=== PATIENT | female | born 1995 | race Caucasian/White ===

== ENCOUNTER 2016-12-02 17:25 | Outpatient (CLI) | payer BC, MEDICAID ==
[~2016-12-02 17:25] MED LIST: BUDE180A INH; IBUP200T48 PO; OXYC-302 PO
[2016-12-02 17:44] VITALS: BP 134/90
[2016-12-02 18:06] LABS: DAU SCREEN DISCLAIMER
== END 2016-12-02 20:28 | disposition home or self-care (01) ==
LOC: LDOP 17:25
PROVIDERS: ATTEND Specialist
DX: O26.893 Other specified pregnancy related conditions, third trimester (principal); O62.9 Abnormality of forces of labor, unspecified; O99.513 Diseases of the respiratory system complicating pregnancy, third trimester; J45.909 Unspecified asthma, uncomplicated; R10.32 Left lower quadrant pain; Z3A.31 31 weeks gestation of pregnancy
CPT/HCPCS: 59025; 76815; 80307; 81001; 87086; 99211; G0463

== ENCOUNTER 2017-01-13 08:50 | Emergency (ER) | payer BC ==
[~2017-01-13] VITALS: Ht 162.6 cm; Wt 65.4 kg
[2017-01-13] MEDS ORDERED: SODIUM CHLORIDE 0.9% 1,000 ML IV ONE (09:12)
[2017-01-13] MEDS ORDERED: SODIUM CHLORIDE 0.9% 1,000ML IVBOLUS ONE (09:30)
[2017-01-13] MEDS ORDERED: SODIUM CHLORIDE FLUSH 10ML SYR IVF ONE (09:30)
[2017-01-13] MEDS ORDERED: ONDANSETRON 2MG/ML, 2ML IVPush ONE (09:30)
[2017-01-13] MEDS ORDERED: ONDANSETRON 2MG/ML, 2ML ONE (09:42)
[2017-01-13 09:45] LABS: HEMATOCRIT 38.9 % (34.6-47.8); WHITE BLOOD COUNT 9.3 x10^3/uL (3.4-10)
[2017-01-13 09:58] LABS: BLOOD UREA NITROGEN 6 mg/dL (7-18)
[2017-01-13 10:02] LABS: ASPARTATE AMINO TRANSFERASE 8 U/L (15-37)
[2017-01-13 11:22] VITALS: BP 106/68
== END 2017-01-13 12:16 | disposition home or self-care (01) ==
LOC: ED 09:53
DX: O23.13 Infections of bladder in pregnancy, third trimester (principal); O99.613 Diseases of the digestive system complicating pregnancy, third trimester; Z3A.36 36 weeks gestation of pregnancy; K52.9 Noninfective gastroenteritis and colitis, unspecified; K92.9 Disease of digestive system, unspecified; J45.909 Unspecified asthma, uncomplicated; F12.10 Cannabis abuse, uncomplicated
CPT/HCPCS: 36415; 80053; 81001; 85025; 87086; 96361; 96374; 99284; J2405; J7030

== ENCOUNTER 2017-01-13 12:20 | Outpatient (CLI) | payer BC, MEDICAID ==
[~2017-01-13] VITALS: Ht 162.6 cm; Wt 64.5 kg
[2017-01-13 12:24] VITALS: BP 112/64
== END 2017-01-13 13:22 | disposition home or self-care (01) ==
LOC: LDOP 12:20
PROVIDERS: ATTEND Student in an Organized Health Care Education/Training Program
DX: O26.893 Other specified pregnancy related conditions, third trimester (principal); O99.513 Diseases of the respiratory system complicating pregnancy, third trimester; O99.323 Drug use complicating pregnancy, third trimester; R10.9 Unspecified abdominal pain; J45.909 Unspecified asthma, uncomplicated; F12.90 Cannabis use, unspecified, uncomplicated; Z3A.36 36 weeks gestation of pregnancy
CPT/HCPCS: 59025; 87081; 99211; G0463

== ENCOUNTER 2017-01-30 20:28 | Outpatient (CLI) | payer BC, MEDICAID ==
[~2017-01-30] VITALS: Ht 162.6 cm; Wt 66.4 kg
[2017-01-30 20:34] VITALS: BP 129/85
[2017-01-30] MEDS ORDERED: FLU VACC QS2017-18 (36MOS+) UP/PF 0.5 ML IM-VACC ONE (21:00)
[2017-01-30 22:20] LABS: DAU SCREEN DISCLAIMER
== END 2017-01-30 23:00 | disposition home or self-care (01) ==
LOC: LDOP 20:28
PROVIDERS: ATTEND Obstetrics & Gynecology
DX: O26.893 Other specified pregnancy related conditions, third trimester (principal); O99.513 Diseases of the respiratory system complicating pregnancy, third trimester; R10.9 Unspecified abdominal pain; J45.909 Unspecified asthma, uncomplicated; Z3A.38 38 weeks gestation of pregnancy
CPT/HCPCS: 59025; 80307; 90686; 99211; G0463; G0479

== ENCOUNTER 2018-11-11 21:06 | Emergency (ER) | payer BC, MEDICAID ==
[~2018-11-11] VITALS: Ht 162.6 cm; Wt 62.2 kg
[~2018-11-11 21:06] MED LIST changes: -IBUP200T48 PO; +IBUP200T49 PO
[2018-11-11] MEDS ORDERED: ONDANSETRON ODT 4 MG ONE (21:26)
[2018-11-11] MEDS ORDERED: KETOROLAC 30 MG/1 ML IVPush ONE (21:30)
[2018-11-11] MEDS ORDERED: ONDANSETRON ODT 8 MG PO ONE (21:30)
[2018-11-11] MEDS ORDERED: MORPHINE SULFATE 4 MG/ML, 1ML IVPush PRN (21:30)
[2018-11-11] MEDS ORDERED: KETOROLAC 30 MG/1 ML ONE (21:39)
[2018-11-11] MEDS ORDERED: MORPHINE SULFATE 4 MG/ML, 1ML ONE (21:39)
[2018-11-11 21:45] LABS: HCG UR SG 1.017 (1.003-1.030); MICROSCOPIC NOT IND
[2018-11-11 21:47] LABS: BASOPHILS # (AUTO) 0.02 x10^3/uL (0-0.1); BASOPHILS % (AUTO) 0 % (0-1); EOSINOPHILS # (AUTO) 0.11 x10^3/uL (0-0.4); EOSINOPHILS % (AUTO) 1 % (1-7); LYMPHOCYTES # (AUTO) 3.21 x10^3/uL (1-3.4); LYMPHOCYTES % (AUTO) 36 % (22-44); MD NO; MEAN CORPUSCULAR HEMOGLOBIN 31.2 pg (27.0-34.8); MEAN CORPUSCULAR HGB CONC 33.3 g/dL (32.4-35.8); MEAN CORPUSCULAR VOLUME 93.8 fL (80-100); MEAN PLATELET VOLUME 9.4 fL (7.4-10.4); MONOCYTES # (AUTO) 0.47 x10^3/uL (0.2-0.8); MONOCYTES % (AUTO) 5 % (2-9); NEUTROPHILS # (AUTO) 5.05 x10^3/uL (1.8-6.8); NEUTROPHILS % (AUTO) 57 % (42-75); PLATELET COUNT 262 x10^3/uL (130-400); RED BLOOD COUNT 4.29 x10^6/uL (3.82-5.3); RED CELL DISTRIBUTION WIDTH 13.1 % (9.6-15.2)
[2018-11-11 21:47] LABS: CULTURE INDICATED? NO
[2018-11-11 21:56] LABS: ALANINE AMINOTRANSFERASE 23 U/L (12-78); ALBUMIN 4.3 g/dL (3.4-5.0); ANION GAP 7 mmol/L (5-15); CHLORIDE 107 mmol/L (98-107); CREATININE 0.75 mg/dL (0.55-1.02)
[2018-11-11 21:58] LABS: ALKALINE PHOSPHATASE 72 U/L (45-117); BILIRUBIN,TOTAL 0.2 mg/dL (0.2-1.0)
--- NOTE | 2018-11-11 22:13 | NUR ---
Pt to ct.
--- NOTE | 2018-11-11 22:20 | NUR ---
BACK FROM CT.
--- NOTE | 2018-11-11 22:28 | NUR ---
THE PT REPORTS THE NAUSE HAD IMPROVED. WARM BLANKETS GIVEN TO THE PT.
--- NOTE | 2018-11-11 23:05 | NUR ---
at bedside for recheck.
[2018-11-11 23:33] VITALS: BP 115/67
== END 2018-11-11 23:38 | disposition home or self-care (01) ==
LOC: ED 21:19
DX: R10.12 Left upper quadrant pain (principal); R10.32 Left lower quadrant pain; J45.909 Unspecified asthma, uncomplicated; F41.1 Generalized anxiety disorder; F17.200 Nicotine dependence, unspecified, uncomplicated
CPT/HCPCS: 36415; 74176; 80053; 81003; 81025; 83690; 85025; 96374; 96375; 99284; J1885; J2270; Q0162

== ENCOUNTER 2019-02-17 10:25 | Emergency (ER) | payer MEDICAID ==
[~2019-02-17] VITALS: Ht 160 cm; Wt 63.0 kg
[2019-02-17 10:49] VITALS: BP 147/78
--- NOTE | 2019-02-17 11:23 | NUR ---
AMBULATORY TO ROOM FROM LOBBY
[2019-02-17] MEDS ORDERED: HYDROcodone/APAP 5/325 TABLET ONE (11:39)
--- NOTE | 2019-02-17 11:49 | NUR ---
Patient/Caregiver given discharge instructions and they have confirmed that they understand the instructions. Patient ambulatory with steady gait.
[2019-02-17] MEDS ORDERED: HYDROcodone/APAP 5/325 TABLET PO ONE (12:00)
== END 2019-02-17 11:55 | disposition home or self-care (01) ==
LOC: ED 11:47
DX: K02.9 Dental caries, unspecified (principal); J45.909 Unspecified asthma, uncomplicated; F19.10 Other psychoactive substance abuse, uncomplicated
CPT/HCPCS: 99283

== ENCOUNTER 2019-03-18 06:21 | Emergency (ER) | payer MEDICAID ==
[~2019-03-18] VITALS: Ht 160 cm; Wt 63.9 kg
--- NOTE | 2019-03-18 06:47 | NUR ---
DIRECTOR OF INTERCOLLEGIATE ATHLETICS: PT TO ROOM FROM [facility]
--- NOTE | 2019-03-18 06:59 | NUR ---
PT WITH C/O LLQ ABD PAIN, STATES PAIN HAS BEEN GOING ON FOR 2 WEEKS NOW, DESCRIBED SHARP. PT IS 4 WKS PER HER REPORT. PT ALSO HAS HAD SOME RECENT N/V/D. PT STATES VOMITTING 2-3 DAYS PER DAY, FOR THE LAST WK. ERPROVIDER IN TO SEE PT. AWAITING ORDERS.
[2019-03-18 07:10] VITALS: BP 109/80
[2019-03-18] MEDS ORDERED: ACETAMINOPHEN 500 MG TABLET PO ONE (07:30)
--- NOTE | 2019-03-18 07:36 | NUR ---
PT BACK FROM US.
[2019-03-18 07:46] LABS: MICROSCOPIC AUTO
[2019-03-18 07:47] LABS: CULTURE INDICATED? YES
== END 2019-03-18 09:06 | disposition home or self-care (01) ==
LOC: ED 07:45
DX: Z32.01 Encounter for pregnancy test, result positive (principal); R10.32 Left lower quadrant pain
CPT/HCPCS: 36415; 76801; 81001; 84702; 87086; 99284

== ENCOUNTER 2019-03-20 12:52 | Emergency (ER) | payer MEDICAID ==
[~2019-03-20] VITALS: Ht 160 cm; Wt 64.1 kg
--- NOTE | 2019-03-20 13:19 | NUR ---
BREAK RN: PATIENT AMBULATED TO THE BATHROOM WITH A STEADY GAIT.
--- NOTE | 2019-03-20 13:24 | NUR ---
URINE COLLECTED. LAB IN ROOM.
--- NOTE | 2019-03-20 13:26 | NUR ---
PATIENT TO US.
[2019-03-20 13:40] LABS: MICROSCOPIC NOT IND
[2019-03-20 13:46] LABS: CULTURE INDICATED? NO
[2019-03-20 14:11] VITALS: BP 123/66
--- NOTE | 2019-03-20 14:11 | NUR ---
ULTRASOUND COMPLETED. PT NOW CRAMPING. AWAITING DISPO
== END 2019-03-20 15:30 | disposition home or self-care (01) ==
LOC: ED 13:10
DX: O20.0 Threatened abortion (principal); O99.511 Diseases of the respiratory system complicating pregnancy, first trimester; J45.909 Unspecified asthma, uncomplicated
CPT/HCPCS: 36415; 76801; 81003; 84702; 99284

== ENCOUNTER 2019-03-24 10:00 | Emergency (ER) | payer MEDICAID ==
[~2019-03-24] VITALS: Ht 160 cm; Wt 60.0 kg
[2019-03-24 10:15] VITALS: BP 119/74
--- NOTE | 2019-03-24 10:42 | NUR ---
Patient/Caregiver given discharge instructions and they have confirmed that they understand the instructions. Patient ambulatory with steady gait.
[2019-03-24] MEDS ORDERED: BUPIVACAINE/PF-EPI 0.25% 1:200K SQ ONE (11:00)
== END 2019-03-24 10:47 | disposition home or self-care (01) ==
LOC: ED 10:20
DX: K08.89 Other specified disorders of teeth and supporting structures (principal); J45.909 Unspecified asthma, uncomplicated
CPT/HCPCS: 99283

== ENCOUNTER 2019-05-19 17:54 | Emergency (ER) | payer MEDICAID ==
[~2019-05-19] VITALS: Ht 160 cm; Wt 65.5 kg
[2019-05-19] MEDS ORDERED: SODIUM CHLORIDE 0.9% 1,000ML IVBOLUS ONE (18:30)
[2019-05-19] MEDS ORDERED: SODIUM CHLORIDE FLUSH 10ML SYR IVF ONE (18:30)
[2019-05-19] MEDS ORDERED: ONDANSETRON 2MG/ML, 2ML IVPush ONE (18:30)
[2019-05-19 19:03] LABS: BASOPHILS # (AUTO) 0.02 x10^3/uL (0-0.1); BASOPHILS % (AUTO) 0 % (0-1); EOSINOPHILS # (AUTO) 0.04 x10^3/uL (0-0.4); EOSINOPHILS % (AUTO) 0 % (1-7); LYMPHOCYTES # (AUTO) 2.44 x10^3/uL (1-3.4); LYMPHOCYTES % (AUTO) 22 % (22-44); MD NO; MEAN CORPUSCULAR HEMOGLOBIN 30.2 pg (27.0-34.8); MEAN CORPUSCULAR HGB CONC 33.3 g/dL (32.4-35.8); MEAN CORPUSCULAR VOLUME 90.6 fL (80-100); MEAN PLATELET VOLUME 9.9 fL (7.4-10.4); MONOCYTES # (AUTO) 0.44 x10^3/uL (0.2-0.8); MONOCYTES % (AUTO) 4 % (2-9); NEUTROPHILS # (AUTO) 8.18 x10^3/uL (1.8-6.8); NEUTROPHILS % (AUTO) 74 % (42-75); PLATELET COUNT 265 x10^3/uL (130-400); RED BLOOD COUNT 4.71 x10^6/uL (3.82-5.3); RED CELL DISTRIBUTION WIDTH 13.3 % (9.6-15.2)
[2019-05-19 19:09] LABS: ALANINE AMINOTRANSFERASE 13 U/L (12-78); ALBUMIN 3.5 g/dL (3.4-5.0); ANION GAP 7 mmol/L (5-15); CALCIUM 8.8 mg/dL (8.5-10.1); CHLORIDE 104 mmol/L (98-107); CREATININE 0.63 mg/dL (0.55-1.02)
[2019-05-19 19:11] LABS: ALKALINE PHOSPHATASE 55 U/L (45-117); BILIRUBIN,TOTAL 0.2 mg/dL (0.2-1.0); TOTAL PROTEIN 7.7 g/dL (6.4-8.2)
[2019-05-19 19:13] LABS: MICROSCOPIC NOT IND
[2019-05-19 19:15] LABS: CULTURE INDICATED? NO
--- NOTE | 2019-05-19 20:29 | NUR ---
PT TO ROOM FROM LOBBY
[2019-05-19] MEDS ORDERED: PROMETHAZINE 25 MG/ML, 1ML IM ONE (21:30)
--- NOTE | 2019-05-19 21:36 | NUR ---
PER DR. MIGUEL, HOLD IV AND FLUIDS, ONLY ADMINISTER IM PHENERGAN
[2019-05-19] MEDS ORDERED: PROMETHAZINE 25 MG/ML, 1ML ONE (21:37)
--- NOTE | 2019-05-19 21:44 | NUR ---
PT MEDICATED PER EMAR. 5 RIGHTS ADDRESSED. AWAITING DC PAPERWORK AT THIS TIME.
[2019-05-19 21:45] VITALS: BP 104/68
--- NOTE | 2019-05-19 22:49 | NUR ---
Patient/Caregiver given discharge instructions and they have confirmed that they understand the instructions. Patient ambulatory with steady gait.
== END 2019-05-19 22:51 | disposition home or self-care (01) ==
LOC: ED 21:46
DX: O21.0 Mild hyperemesis gravidarum (principal); O99.512 Diseases of the respiratory system complicating pregnancy, second trimester; J45.909 Unspecified asthma, uncomplicated; Z3A.16 16 weeks gestation of pregnancy
CPT/HCPCS: 36415; 76801; 80053; 81003; 83690; 84702; 85025; 96372; 99284; J2550

== ENCOUNTER 2019-08-28 16:09 | Outpatient (CLI) | payer MEDICAID ==
[~2019-08-28] VITALS: Ht 160 cm; Wt 70.0 kg
[2019-08-28 17:05] LABS: AMPHETAMINE SCREEN, URINE Negative (Negative); BARBITURATE SCREEN, URINE Negative (Negative); BENZODIAZEPINE SCREEN, URINE Negative (Negative); CANNABINOID SCREEN, URINE Negative (Negative); COCAINE SCREEN, URINE Negative (Negative); METHADONE SCREEN, URINE Negative (Negative); OPIATE SCREEN, URINE Negative (Negative); PROTEIN/CREATININE RATIO,URINE 112 (0-200); TOTAL PROTEIN,URINE RANDOM 8 mg/dL (0-12)
[2019-08-28 17:20] LABS: MICROSCOPIC AUTO
[2019-08-28 17:49] LABS: BASOPHILS # (AUTO) 0.02 x10^3/uL (0-0.1); BASOPHILS % (AUTO) 0 % (0-1); EOSINOPHILS % (AUTO) 1 % (1-7); LYMPHOCYTES % (AUTO) 20 % (22-44); MD NO; MEAN CORPUSCULAR HEMOGLOBIN 30.4 pg (27.0-34.8); MEAN CORPUSCULAR HGB CONC 33.4 g/dL (32.4-35.8); MEAN CORPUSCULAR VOLUME 91.1 fL (80-100); MEAN PLATELET VOLUME 9.4 fL (7.4-10.4); MONOCYTES # (AUTO) 0.39 x10^3/uL (0.2-0.8); MONOCYTES % (AUTO) 5 % (2-9); NEUTROPHILS % (AUTO) 74 % (42-75); PLATELET COUNT 211 x10^3/uL (130-400); RED BLOOD COUNT 3.83 x10^6/uL (3.82-5.3)
[2019-08-28 17:53] LABS: ALANINE AMINOTRANSFERASE 13 U/L (12-78); ALBUMIN 2.7 g/dL (3.4-5.0); ANION GAP 9 mmol/L (5-15); CALCIUM 8.6 mg/dL (8.5-10.1); CHLORIDE 108 mmol/L (98-107); CREATININE 0.65 mg/dL (0.55-1.02)
[2019-08-28 17:56] LABS: ALKALINE PHOSPHATASE 71 U/L (45-117); BILIRUBIN,TOTAL 0.1 mg/dL (0.2-1.0); TOTAL PROTEIN 6.5 g/dL (6.4-8.2)
== END 2019-08-28 18:20 | disposition home or self-care (01) ==
LOC: LDOP 16:09
PROVIDERS: ATTEND Obstetrics & Gynecology
DX: O42.913 Preterm premature rupture of membranes, unspecified as to length of time between rupture and onset of labor, third trimester (principal); R10.9 Unspecified abdominal pain; Z3A.32 32 weeks gestation of pregnancy
CPT/HCPCS: 36415; 59025; 80053; 80307; 81001; 82570; 84156; 84550; 85025; 87086; 99211; G0463

== ENCOUNTER 2019-10-11 02:22 | Outpatient (CLI) | payer MEDICAID ==
[~2019-10-11] VITALS: Ht 162.6 cm; Wt 72.7 kg
[2019-10-11 02:53] VITALS: BP 131/86
[2019-10-11 02:54] LABS: MICROSCOPIC NOT IND
[2019-10-11 03:05] LABS: AMPHETAMINE SCREEN, URINE Negative (Negative); BARBITURATE SCREEN, URINE Negative (Negative); BENZODIAZEPINE SCREEN, URINE Negative (Negative); CANNABINOID SCREEN, URINE Positive (Negative); COCAINE SCREEN, URINE Negative (Negative); METHADONE SCREEN, URINE Negative (Negative); OPIATE SCREEN, URINE Negative (Negative)
[2019-10-11] MEDS ORDERED: HYDROcodone/APAP 10/325 MG TABLET ONE (03:56)
[2019-10-11] MEDS ORDERED: HYDROcodone/APAP 10/325 MG TABLET PO ONE (04:00)
== END 2019-10-11 04:57 | disposition home or self-care (01) ==
LOC: LDOP 02:22
PROVIDERS: ATTEND Obstetrics & Gynecology
DX: O26.893 Other specified pregnancy related conditions, third trimester (principal); R10.9 Unspecified abdominal pain; Z3A.35 35 weeks gestation of pregnancy
CPT/HCPCS: 59025; 76815; 80307; 81003; 87081; 87086

== ENCOUNTER 2019-10-11 22:30 | Inpatient (IN) | payer MEDICAID ==
[~2019-10-11] VITALS: Ht 162.6 cm; Wt 77.3 kg
[2019-10-11] MEDS ORDERED: OXYTOCIN 30U/ 0.9% NaCL 500ML 500 ML IV ONE (23:46)
[2019-10-11] MEDS: D5%-LACTATED RINGERS 1,000 ML IV SCH (23:46)
[2019-10-12] MEDS ORDERED: PENICILLIN GK 5,000,000 UNITS in DEXTROSE 5% 100 ML IVPB ONE
[2019-10-12] MEDS ORDERED: TERBUTALINE 1 MG/ML, 1ML SQ PRN
[2019-10-12] MEDS ORDERED: TERBUTALINE 1 MG/ML, 1ML IVPush PRN
[2019-10-12] MEDS ORDERED: FENTANYL PF 100 MCG/2ML IV PRN
[2019-10-12] MEDS ORDERED: ALUMINUM/MAG/SIMETHICONE 30 ML UDC PO PRN
[2019-10-12] MEDS ORDERED: FENTANYL PF 100 MCG/2ML IVPush PRN
[2019-10-12] MEDS ORDERED: SODIUM CITRATE/CITRIC ACID 30 ML UDC PO PRN
[2019-10-12] MEDS ORDERED: SODIUM CHLORIDE FLUSH 10ML SYR IVF PRN
[2019-10-12] MEDS ORDERED: CALCIUM CARBONATE 500 MG TAB.CHEW PO PRN
[2019-10-12 00:24] LABS: BASOPHILS # (AUTO) 0.05 x10^3/uL (0-0.1); BASOPHILS % (AUTO) 1 % (0-1); EOSINOPHILS # (AUTO) 0.08 x10^3/uL (0-0.4); EOSINOPHILS % (AUTO) 1 % (1-7); LYMPHOCYTES # (AUTO) 1.94 x10^3/uL (1-3.4); LYMPHOCYTES % (AUTO) 23 % (22-44); MD NO; MEAN CORPUSCULAR HEMOGLOBIN 29.3 pg (27.0-34.8); MEAN CORPUSCULAR VOLUME 88.7 fL (80-100); MONOCYTES % (AUTO) 8 % (2-9); NEUTROPHILS % (AUTO) 67 % (42-75); PLATELET COUNT 224 x10^3/uL (130-400); RED BLOOD COUNT 3.86 x10^6/uL (3.82-5.3); RED CELL DISTRIBUTION WIDTH 13.2 % (9.6-15.2)
[2019-10-12] MEDS ORDERED: BETAMETHASONE 6 MG/ML, 5ML IM ONE (00:30)
[2019-10-12] MEDS: BETAMETHASONE 6 MG/ML, 5ML IM SCH (00:32)
[2019-10-12 00:33] LABS: MICROSCOPIC INDICATED
[2019-10-12] MEDS ORDERED: OXYTOCIN 30U/ 0.9% NaCL 500ML 500 ML IV PRN (01:23)
[2019-10-12] MEDS ORDERED: AZITHROMYCIN 500 MG in SODIUM CHLORIDE 0.9% 250 ML IV ONE (01:30)
[2019-10-12] MEDS ORDERED: NEWBORN KIT ONE (01:30)
[2019-10-12] MEDS ORDERED: PLEASE ENTER HEIGHT AND WEIGHT MC SCH (01:30)
[2019-10-12] MEDS ORDERED: LIDOCAINE 1%, 20ML ONE (01:30)
[2019-10-12] MEDS ORDERED: MISOPROSTOL 200 MCG TABLET ONE (01:30)
[2019-10-12] MEDS ORDERED: OXYTOCIN 30U/ 0.9% NaCL 500ML 500 ML ONE (01:30)
[2019-10-12] MEDS: LACTATED RINGERS 1,000 ML IV SCH ×5 (01:49→23:46)
[2019-10-12] MEDS ORDERED: ONDANSETRON 2MG/ML, 2ML ONE (02:01)
[2019-10-12] MEDS ORDERED: BUPIVACAINE 0.25% ONE ×2 (02:05→02:11)
[2019-10-12] MEDS: ONDANSETRON 2MG/ML, 2ML IVPush PRN (02:05)
[2019-10-12] MEDS ORDERED: FENTANYL/BUPIV./NS/PF 250 ML EPIDCONT ONE ×2 (02:10→02:11)
[2019-10-12] MEDS ORDERED: LIDOCAINE/PF 1.5%-EPI 1:200K, 30ML ONE (02:11)
[2019-10-12] MEDS ORDERED: PENICILLIN GK 2,500,000 UNITS in DEXTROSE 5% 100 ML IVPB SCH (04:00)
[2019-10-12] MEDS ORDERED: EPHEDRINE 50 MG/ML, 1ML ONE (04:04)
[2019-10-12] MEDS ORDERED: FENTANYL/BUPIV./NS/PF 250 ML EPIDCONT SCH (04:08)
[2019-10-12] MEDS ORDERED: EPHEDRINE 50 MG/ML, 1ML IVPush PRN (04:30)
[2019-10-12] MEDS ORDERED: LACTATED RINGERS 1,000 ML IVBOLUS PRN (04:30)
[2019-10-12] MEDS: AMPICILLIN 1 GM in SODIUM CHLORIDE 0.9% 100 ML IVPB SCH ×4 (08:20→20:47)
[2019-10-12] MEDS: D5%-LACTATED RINGERS 1,000 ML IV SCH ×3 (09:17→23:46)
[2019-10-12] MEDS ORDERED: DIPHENHYDRAMINE 25 MG CAPSULE ONE (17:48)
[2019-10-12] MEDS ORDERED: DIPHENHYDRAMINE 50 MG CAPSULE PO PRN (18:00)
[2019-10-13] MEDS: AMPICILLIN 1 GM in SODIUM CHLORIDE 0.9% 100 ML IVPB SCH ×6 (00:26→22:04)
[2019-10-13] MEDS: BETAMETHASONE 6 MG/ML, 5ML IM SCH (00:26)
[2019-10-13] MEDS ORDERED: ACETAMINOPHEN 325 MG TABLET PO PRN (01:30)
[2019-10-13] MEDS ORDERED: ACETAMINOPHEN 325 MG TABLET ONE (01:54)
[2019-10-13] MEDS: LACTATED RINGERS 1,000 ML IV SCH ×4 (07:46→23:46)
[2019-10-13] MEDS: D5%-LACTATED RINGERS 1,000 ML IV SCH ×3 (07:46→23:46)
[2019-10-13] MEDS ORDERED: PRENATAL VIT/IRON/FA 1 EACH TABLET ONE (08:05)
[2019-10-13] MEDS ORDERED: DOCUSATE 100 MG CAPSULE ONE (08:05)
[2019-10-13] MEDS: DOCUSATE 100 MG CAPSULE PO PRN (09:06)
[2019-10-13] MEDS: PRENATAL VIT/IRON/FA 1 EACH TABLET PO SCH (09:06)
[2019-10-13 09:19] VITALS: BP 107/63
[2019-10-13] MEDS ORDERED: PREN1TAB60 PO (11:13)
[2019-10-13] MEDS ORDERED: BUDE180A INH (11:55)
[2019-10-13] MEDS ORDERED: FLUT15.845 INH (12:08)
[2019-10-13] MEDS ORDERED: ONDANSETRON 2MG/ML, 2ML ONE (16:19)
[2019-10-13] MEDS: ONDANSETRON 2MG/ML, 2ML IVPush PRN (16:21)
[2019-10-13] MEDS ORDERED: OXYcodone/APAP 5/325MG TABLET ONE (21:56)
[2019-10-13] MEDS ORDERED: OXYcodone/APAP 5/325MG TABLET PO PRN (22:00)
[2019-10-14] MEDS: AMPICILLIN 1 GM in SODIUM CHLORIDE 0.9% 100 ML IVPB SCH (02:05)
[2019-10-14 02:30] VITALS: BP 96/53
[2019-10-14] MEDS ORDERED: ONDANSETRON 2MG/ML, 2ML ONE ×2 (05:29→15:43)
[2019-10-14] MEDS: LACTATED RINGERS 1,000 ML IV SCH (05:30)
[2019-10-14] MEDS: ONDANSETRON 2MG/ML, 2ML IVPush PRN ×2 (05:30→15:47)
[2019-10-14] MEDS: PRENATAL VIT/IRON/FA 1 EACH TABLET PO SCH (09:00)
[2019-10-14] MEDS ORDERED: FENTANYL/BUPIV./NS/PF 250 ML EPIDCONT SCH (11:03)
[2019-10-14] MEDS ORDERED: LACTATED RINGERS 1,000 ML IV SCH (11:03)
[2019-10-14] MEDS ORDERED: LIDOCAINE/MPF 2%-EPI 1:200K, 20 ML ONE (11:04)
[2019-10-14] MEDS ORDERED: BUPIVACAINE 0.25% ONE (11:04)
[2019-10-14] MEDS ORDERED: FENTANYL/BUPIV./NS/PF 250 ML EPIDCONT ONE (11:04)
[2019-10-14] MEDS ORDERED: ONDANSETRON 2MG/ML, 2ML IVPush PRN (11:30)
[2019-10-14] MEDS ORDERED: NALOXONE 0.4 MG/ML, 1ML IVPush PRN (11:30)
[2019-10-14] MEDS ORDERED: LACTATED RINGERS 1,000 ML IVBOLUS PRN (11:30)
[2019-10-14] MEDS ORDERED: FENTANYL PF 500 MCG, BUPIVACAINE/PF 0.5%, 30ML 62.5 ML in SODIUM CHLORIDE 0.9% 177.5 ML EPIDCONT SCH (11:30)
[2019-10-14] MEDS ORDERED: EPHEDRINE 50 MG/ML, 1ML IVPush PRN (11:30)
[2019-10-14] MEDS ORDERED: DIPHENHYDRAMINE 50 MG/ML, 1ML IVPush PRN (11:30)
[2019-10-14] MEDS: OXYTOCIN 30U/ 0.9% NaCL 500ML 500 ML IV SCH (18:29)
[2019-10-14] MEDS ORDERED: METOCLOPRAMIDE 5 MG/ML, 2ML IV PRN (18:30)
[2019-10-14] MEDS ORDERED: GLYCERIN ADULT SUPP PR PRN (18:30)
[2019-10-14] MEDS ORDERED: ONDANSETRON 2MG/ML, 2ML IV PRN (18:30)
[2019-10-14] MEDS ORDERED: SIMETHICONE 80 MG CHEW TAB PO PRN (18:30)
[2019-10-14] MEDS ORDERED: ACETAMINOPHEN 325 MG TABLET PO PRN (18:30)
[2019-10-14] MEDS ORDERED: MISOPROSTOL 200 MCG TABLET PR PRN (18:30)
[2019-10-14] MEDS ORDERED: METHYLERGONOVINE 0.2 MG/ML IM PRN (18:30)
[2019-10-14] MEDS ORDERED: OXYcodone/APAP 5/325MG TABLET PO PRN (18:30)
[2019-10-14] MEDS ORDERED: OXYcodone IR 5MG TABLET PO PRN (18:30)
[2019-10-14] MEDS ORDERED: CARBOPROST TROMETHAMINE 250 MCG/ML, 1ML IM PRN (18:30)
[2019-10-14] MEDS ORDERED: BISACODYL 10 MG SUPP PR PRN (18:30)
[2019-10-14] MEDS ORDERED: DOCUSATE 100 MG CAPSULE PO PRN (18:30)
[2019-10-14] MEDS ORDERED: OXYTOCIN 30U/ 0.9% NaCL 500ML 500 ML ONE (19:09)
[2019-10-14] MEDS ORDERED: IBUPROFEN 600 MG TABLET ONE (20:09)
[2019-10-14] MEDS: IBUPROFEN 600 MG TABLET PO PRN (20:10)
[2019-10-14 20:50] VITALS: BP 102/62
[2019-10-15 00:50] VITALS: BP 117/76
[2019-10-15 02:11] LABS: BASOPHILS # (AUTO) 0.09 x10^3/uL (0-0.1); BASOPHILS % (AUTO) 1 % (0-1); EOSINOPHILS # (AUTO) 0.01 x10^3/uL (0-0.4); EOSINOPHILS % (AUTO) 0 % (1-7); LYMPHOCYTES # (AUTO) 1.72 x10^3/uL (1-3.4); LYMPHOCYTES % (AUTO) 17 % (22-44); MD NO; MEAN CORPUSCULAR HEMOGLOBIN 29.8 pg (27.0-34.8); MEAN CORPUSCULAR HGB CONC 33.3 g/dL (32.4-35.8); MEAN CORPUSCULAR VOLUME 89.3 fL (80-100); MEAN PLATELET VOLUME 9.7 fL (7.4-10.4); MONOCYTES # (AUTO) 0.96 x10^3/uL (0.2-0.8); MONOCYTES % (AUTO) 9 % (2-9); NEUTROPHILS # (AUTO) 7.57 x10^3/uL (1.8-6.8); NEUTROPHILS % (AUTO) 73 % (42-75); PLATELET COUNT 197 x10^3/uL (130-400); RED CELL DISTRIBUTION WIDTH 13.6 % (9.6-15.2)
[2019-10-15 04:10] VITALS: BP 118/80
[2019-10-15] MEDS: IBUPROFEN 600 MG TABLET PO PRN ×2 (04:15→10:13)
[2019-10-15] MEDS: OXYTOCIN 30U/ 0.9% NaCL 500ML 500 ML IV SCH (04:29)
[2019-10-15 07:38] VITALS: BP 116/77
[2019-10-15] MEDS: PRENATAL VIT/IRON/FA 1 EACH TABLET PO SCH (09:00)
[2019-10-15] MEDS ORDERED: PRENATAL VIT/IRON/FA 1 EACH TABLET PO SCH (09:00)
[2019-10-15] MEDS: DOCUSATE 100 MG CAPSULE PO PRN (09:26)
[2019-10-15] MEDS ORDERED: OXYC-302 PO (09:38)
[2019-10-15] MEDS ORDERED: IBUP-1840 PO (09:41)
== END 2019-10-15 10:30 | disposition home or self-care (01) | DRG 560 ==
LOC: LDOP 22:30 → L&D 10-12 00:22 → LDIP 10-12 01:21 → 2NW 10-14 20:29
PROVIDERS: ADMIT Obstetrics & Gynecology; ATTEND Obstetrics & Gynecology
PROC: 10E0XZZ Delivery of Products of Conception, External Approach (ICD-10-PCS; principal; 2019-10-14)
PROC: 10907ZC Drainage of Amniotic Fluid, Therapeutic from Products of Conception, Via Natural or Artificial Opening (ICD-10-PCS; 2019-10-14)
PROC: 3E0R3BZ Introduction of Anesthetic Agent into Spinal Canal, Percutaneous Approach (ICD-10-PCS; 2019-10-14)
PROC: 00HU33Z Insertion of Infusion Device into Spinal Canal, Percutaneous Approach (ICD-10-PCS; 2019-10-14)
DX: O42.013 Preterm premature rupture of membranes, onset of labor within 24 hours of rupture, third trimester (principal); O24.92 Unspecified diabetes mellitus in childbirth; O99.324 Drug use complicating childbirth; O99.344 Other mental disorders complicating childbirth; D62 Acute posthemorrhagic anemia; O60.10X0 Preterm labor with preterm delivery, unspecified trimester, not applicable or unspecified; F32.9 Major depressive disorder, single episode, unspecified; F12.90 Cannabis use, unspecified, uncomplicated; O99.52 Diseases of the respiratory system complicating childbirth; J45.909 Unspecified asthma, uncomplicated; O99.02 Anemia complicating childbirth; Z3A.34 34 weeks gestation of pregnancy; Z37.0 Single live birth; Z80.3 Family history of malignant neoplasm of breast; Z82.49 Family history of ischemic heart disease and other diseases of the circulatory system; Z83.3 Family history of diabetes mellitus
CPT/HCPCS: 36415; 81001; 82803; 84112; 85025; 86592; 86850; 86900; 87086; G0378; J0290; J0456; J0702; J2405; J2540; J3490; J2590; J3010; J7050; J7120; J7121

== ENCOUNTER 2020-10-24 22:50 | Inpatient (IN) | payer MEDICAID ==
[~2020-10-24] VITALS: Ht 162.6 cm; Wt 75.0 kg
[~2020-10-24 22:50] MED LIST changes: +FLUT15.845 INH; +IBUP-1840 PO; -OXYC-302 PO; +OXYC1TAB14 PO; +PREN1TAB60 PO
[2020-10-25] MEDS ORDERED: LACTATED RINGERS 1,000 ML IVBOLUS ONE
[2020-10-25 00:29] LABS: MICROSCOPIC INDICATED
[2020-10-25] MEDS ORDERED: BUTALB/APAP/CAFFEINE 50MG/325MG/40MG ONE (00:54)
[2020-10-25] MEDS ORDERED: BUTALB/APAP/CAFFEINE 50MG/325MG/40MG PO PRN (01:00)
[2020-10-25] MEDS ORDERED: FENTANYL PF 100 MCG/2ML IV PRN (01:30)
[2020-10-25] MEDS ORDERED: OXYTOCIN 30U/ 0.9% NaCL 500ML 500 ML IV ONE (01:30)
[2020-10-25] MEDS ORDERED: CALCIUM CARBONATE 500 MG TAB.CHEW PO PRN (01:30)
[2020-10-25] MEDS ORDERED: D5%-LACTATED RINGERS 1,000 ML IV SCH (01:30)
[2020-10-25] MEDS ORDERED: PENICILLIN GK 5,000,000 UNITS in DEXTROSE 5% 100 ML IVPB ONE (01:30)
[2020-10-25] MEDS ORDERED: BETAMETHASONE 6 MG/ML, 5ML IM SCH (01:30)
[2020-10-25] MEDS ORDERED: FENTANYL PF 100 MCG/2ML IVPush PRN (01:30)
[2020-10-25] MEDS ORDERED: ONDANSETRON 2MG/ML, 2ML IVPush PRN ×2 (01:30)
[2020-10-25] MEDS ORDERED: TERBUTALINE 1 MG/ML, 1ML IVPush PRN (01:30)
[2020-10-25] MEDS ORDERED: TERBUTALINE 1 MG/ML, 1ML SQ PRN (01:30)
[2020-10-25] MEDS ORDERED: FENTANYL PF 100 MCG/2ML ONE (01:45)
[2020-10-25 01:56] LABS: BASOPHILS % (AUTO) 0 % (0-1); EOSINOPHILS % (AUTO) 1 % (1-7); LYMPHOCYTES % (AUTO) 27 % (22-44); MEAN CORPUSCULAR HEMOGLOBIN 29.8 pg (27.0-34.8); MEAN CORPUSCULAR HGB CONC 33.8 g/dL (32.4-35.8); MEAN PLATELET VOLUME 9.2 fL (7.4-10.4); MONOCYTES % (AUTO) 6 % (2-9); NEUTROPHILS % (AUTO) 66 % (42-75); PLATELET COUNT 187 x10^3/uL (130-400); RED BLOOD COUNT 3.96 x10^6/uL (3.82-5.3); RED CELL DISTRIBUTION WIDTH 13.5 % (9.6-15.2)
[2020-10-25] MEDS: LACTATED RINGERS 1,000 ML IV SCH ×2 (02:00→07:35)
[2020-10-25] MEDS ORDERED: PLEASE ENTER HEIGHT AND WEIGHT MC SCH (02:00)
[2020-10-25] MEDS ORDERED: NEWBORN KIT ONE (02:18)
[2020-10-25] MEDS ORDERED: PENICILLIN GK 2,500,000 UNITS in DEXTROSE 5% 100 ML IVPB SCH (05:30)
[2020-10-25 05:43] LABS: AMPHETAMINE SCREEN, URINE Negative (Negative); BARBITURATE SCREEN, URINE Positive (Negative); BENZODIAZEPINE SCREEN, URINE Negative (Negative); CANNABINOID SCREEN, URINE Positive (Negative); COCAINE SCREEN, URINE Negative (Negative); METHADONE SCREEN, URINE Negative (Negative); OPIATE SCREEN, URINE Negative (Negative)
[2020-10-25] MEDS ORDERED: NIFE10CA PO (08:47)
== END 2020-10-25 09:15 | disposition home or self-care (01) | DRG 563 ==
LOC: LDOP 22:50 → LDIP 10-25 01:48
PROVIDERS: ADMIT Obstetrics & Gynecology; ATTEND Obstetrics & Gynecology
DX: O60.03 Preterm labor without delivery, third trimester (principal); O16.3 Unspecified maternal hypertension, third trimester; J45.909 Unspecified asthma, uncomplicated; O99.513 Diseases of the respiratory system complicating pregnancy, third trimester; Z20.822 Contact with and (suspected) exposure to COVID-19; Z91.040 Latex allergy status; Z3A.34 34 weeks gestation of pregnancy
CPT/HCPCS: 36415; 80307; 81001; 85025; 86592; 86850; 86900; 87086; 87635; G0378; J0702; J2405; J2540; J7120

== ENCOUNTER 2020-10-26 06:08 | Outpatient (CLI) | payer MEDICAID ==
[~2020-10-26] VITALS: Ht 162.6 cm; Wt 75.4 kg
[~2020-10-26 06:08] MED LIST changes: +NIFE10CA PO
[2020-10-26] MEDS ORDERED: BETAMETHASONE 6 MG/ML, 5ML IM ONE (06:30)
== END 2020-10-26 07:00 | disposition home or self-care (01) ==
LOC: LDOP 06:08
PROVIDERS: ATTEND Obstetrics & Gynecology
DX: O99.513 Diseases of the respiratory system complicating pregnancy, third trimester (principal); J45.909 Unspecified asthma, uncomplicated; O60.03 Preterm labor without delivery, third trimester; O16.3 Unspecified maternal hypertension, third trimester; Z3A.34 34 weeks gestation of pregnancy
CPT/HCPCS: 59025; 96372; J0702

== ENCOUNTER 2020-10-27 12:55 | Outpatient (CLI) | payer MEDICAID ==
[~2020-10-27] VITALS: Ht 162.6 cm; Wt 75.4 kg
== END 2020-10-27 15:05 | disposition home or self-care (01) ==
LOC: LDOP 12:55
PROVIDERS: ATTEND Obstetrics & Gynecology
DX: O36.8130 Decreased fetal movements, third trimester, not applicable or unspecified (principal); O62.9 Abnormality of forces of labor, unspecified; Z3A.34 34 weeks gestation of pregnancy
CPT/HCPCS: 59025; 76819

== ENCOUNTER 2020-10-29 11:48 | Outpatient (CLI) | payer MEDICAID ==
[~2020-10-29] VITALS: Ht 162.6 cm; Wt 75.5 kg
[2020-10-29 12:00] VITALS: BP 118/84
[2020-10-29 12:26] LABS: AMPHETAMINE SCREEN, URINE Negative (Negative); BARBITURATE SCREEN, URINE Positive (Negative); BENZODIAZEPINE SCREEN, URINE Negative (Negative); CANNABINOID SCREEN, URINE Positive (Negative); COCAINE SCREEN, URINE Negative (Negative); METHADONE SCREEN, URINE Negative (Negative); OPIATE SCREEN, URINE Negative (Negative)
== END 2020-10-29 13:36 | disposition home or self-care (01) ==
LOC: LDOP 11:48
PROVIDERS: ATTEND Obstetrics & Gynecology
DX: Z34.93 Encounter for supervision of normal pregnancy, unspecified, third trimester (principal); Z3A.34 34 weeks gestation of pregnancy
CPT/HCPCS: 59025; 80307

== ENCOUNTER 2020-11-09 12:22 | Outpatient (CLI) | payer MEDICAID ==
[~2020-11-09] VITALS: Ht 162.6 cm; Wt 75.4 kg
[2020-11-09 12:28] VITALS: BP 112/74
[2020-11-09 13:14] LABS: AMPHETAMINE SCREEN, URINE Negative (Negative); BARBITURATE SCREEN, URINE Positive (Negative); BENZODIAZEPINE SCREEN, URINE Negative (Negative); CANNABINOID SCREEN, URINE Positive (Negative); COCAINE SCREEN, URINE Negative (Negative); METHADONE SCREEN, URINE Negative (Negative); OPIATE SCREEN, URINE Negative (Negative)
== END 2020-11-09 13:44 | disposition home or self-care (01) ==
LOC: LDOP 12:22
PROVIDERS: ATTEND Obstetrics & Gynecology
DX: O42.913 Preterm premature rupture of membranes, unspecified as to length of time between rupture and onset of labor, third trimester (principal); Z3A.36 36 weeks gestation of pregnancy
CPT/HCPCS: 59025; 80307; 84112

== ENCOUNTER 2020-11-24 16:58 | Inpatient (IN) | payer MEDICAID ==
[~2020-11-24] VITALS: Ht 162.6 cm; Wt 75.5 kg
[2020-11-24 17:56] VITALS: BP 126/77
[2020-11-24 18:21] LABS: MICROSCOPIC INDICATED
[2020-11-24] MEDS ORDERED: OXYTOCIN 30U/ 0.9% NaCL 500ML 500 ML IV ONE (19:30)
[2020-11-24] MEDS ORDERED: TERBUTALINE 1 MG/ML, 1ML SQ PRN (19:30)
[2020-11-24] MEDS ORDERED: TERBUTALINE 1 MG/ML, 1ML IVPush PRN (19:30)
[2020-11-24 19:58] LABS: BASOPHILS % (AUTO) 0 % (0-1); EOSINOPHILS % (AUTO) 1 % (1-7); LYMPHOCYTES % (AUTO) 24 % (22-44); MEAN CORPUSCULAR HEMOGLOBIN 28.7 pg (27.0-34.8); MEAN CORPUSCULAR HGB CONC 33.4 g/dL (32.4-35.8); MEAN PLATELET VOLUME 9.6 fL (7.4-10.4); MONOCYTES % (AUTO) 6 % (2-9); NEUTROPHILS % (AUTO) 70 % (42-75); PLATELET COUNT 217 x10^3/uL (130-400); RED BLOOD COUNT 4.25 x10^6/uL (3.82-5.3); RED CELL DISTRIBUTION WIDTH 14.2 % (9.6-15.2)
[2020-11-24] MEDS: LACTATED RINGERS 1,000 ML IV SCH ×3 (20:20→23:28)
[2020-11-24] MEDS ORDERED: ONDANSETRON 2MG/ML, 2ML ONE (20:21)
[2020-11-24] MEDS: ONDANSETRON 2MG/ML, 2ML IVPush PRN (20:28)
[2020-11-24] MEDS ORDERED: FENTANYL PF 100 MCG/2ML IV PRN (20:30)
[2020-11-24] MEDS: D5%-LACTATED RINGERS 1,000 ML IV SCH (20:30)
[2020-11-24] MEDS ORDERED: SODIUM CHLORIDE FLUSH 10ML SYR IVF PRN (20:30)
[2020-11-24] MEDS ORDERED: FENTANYL PF 100 MCG/2ML IVPush PRN (20:30)
[2020-11-24] MEDS ORDERED: CALCIUM CARBONATE 500 MG TAB.CHEW PO PRN (20:30)
[2020-11-24] MEDS ORDERED: BUPIVACAINE 0.25% ONE (21:02)
[2020-11-24 21:30] LABS: AMPHETAMINE SCREEN, URINE Negative (Negative); BARBITURATE SCREEN, URINE Negative (Negative); BENZODIAZEPINE SCREEN, URINE Negative (Negative); CANNABINOID SCREEN, URINE Negative (Negative); COCAINE SCREEN, URINE Negative (Negative); METHADONE SCREEN, URINE Negative (Negative); OPIATE SCREEN, URINE Positive (Negative)
[2020-11-24] MEDS ORDERED: LACTATED RINGERS 1,000 ML IVBOLUS PRN ×2 (21:30)
[2020-11-24] MEDS ORDERED: FENTANYL/BUPIV./NS/PF 250 ML EPIDCONT SCH (21:30)
[2020-11-24] MEDS ORDERED: EPHEDRINE 50 MG/ML, 1ML IVPush PRN ×2 (21:30)
[2020-11-24] MEDS ORDERED: LACTATED RINGERS 1,000 ML IV SCH (21:30)
[2020-11-24] MEDS: FENTANYL/BUPIV./NS/PF 250 ML EPIDCONT SCH (21:30)
[2020-11-24] MEDS ORDERED: LIDOCAINE 1%, 10ML ONE (23:24)
[2020-11-24] MEDS ORDERED: MISOPROSTOL 200 MCG TABLET ONE (23:24)
[2020-11-25] MEDS ORDERED: NEWBORN KIT ONE (00:06)
[2020-11-25] MEDS: ONDANSETRON 2MG/ML, 2ML IVPush PRN ×2 (01:02→07:39)
[2020-11-25] MEDS ORDERED: OXYTOCIN 30U/ 0.9% NaCL 500ML 500 ML IV PRN (02:00)
[2020-11-25] MEDS: LACTATED RINGERS 1,000 ML IV SCH ×4 (02:50→21:30)
[2020-11-25] MEDS: D5%-LACTATED RINGERS 1,000 ML IV SCH (04:30)
[2020-11-25] MEDS: IBUPROFEN 600 MG TABLET PO PRN ×2 (09:30→16:39)
[2020-11-25] MEDS ORDERED: IBUPROFEN 600 MG TABLET ONE (09:35)
[2020-11-25] MEDS ORDERED: HYDROcodone/APAP 5/325 TABLET PO PRN ×2 (10:30)
[2020-11-25] MEDS ORDERED: ONDANSETRON 2MG/ML, 2ML IV PRN (10:30)
[2020-11-25] MEDS ORDERED: SIMETHICONE 80 MG CHEW TAB PO PRN (10:30)
[2020-11-25] MEDS ORDERED: OXYcodone/APAP 5/325MG TABLET PO PRN ×2 (10:30)
[2020-11-25] MEDS: OXYTOCIN 30U/ 0.9% NaCL 500ML 500 ML IV SCH ×2 (10:30→20:30)
[2020-11-25] MEDS ORDERED: ACETAMINOPHEN 325 MG TABLET PO PRN ×2 (10:30)
[2020-11-25] MEDS ORDERED: OXYcodone IR 5MG TABLET PO PRN (11:30)
[2020-11-25 16:09] VITALS: BP 112/73
[2020-11-25 20:00] VITALS: BP 131/79
[2020-11-25] MEDS: DOCUSATE 100 MG CAPSULE PO PRN (20:19)
[2020-11-25] MEDS: OXYcodone IR 5MG TABLET PO PRN (20:20)
[2020-11-25] MEDS: FENTANYL/BUPIV./NS/PF 250 ML EPIDCONT SCH (21:30)
[2020-11-25 21:41] LABS: BASOPHILS % (AUTO) 1 % (0-1); EOSINOPHILS % (AUTO) 1 % (1-7); LYMPHOCYTES % (AUTO) 22 % (22-44); MEAN CORPUSCULAR HEMOGLOBIN 28.8 pg (27.0-34.8); MEAN CORPUSCULAR HGB CONC 33.2 g/dL (32.4-35.8); MEAN PLATELET VOLUME 9.8 fL (7.4-10.4); MONOCYTES % (AUTO) 9 % (2-9); NEUTROPHILS % (AUTO) 68 % (42-75); PLATELET COUNT 198 x10^3/uL (130-400); RED BLOOD COUNT 3.64 x10^6/uL (3.82-5.3); RED CELL DISTRIBUTION WIDTH 14.4 % (9.6-15.2)
[2020-11-26 04:00] VITALS: BP 104/81
[2020-11-26] MEDS: LACTATED RINGERS 1,000 ML IV SCH (05:30)
[2020-11-26] MEDS: OXYTOCIN 30U/ 0.9% NaCL 500ML 500 ML IV SCH (06:30)
[2020-11-26 08:10] VITALS: BP 103/68
[2020-11-26] MEDS: DOCUSATE 100 MG CAPSULE PO PRN (08:26)
[2020-11-26] MEDS: OXYcodone IR 5MG TABLET PO PRN (08:28)
[2020-11-26] MEDS ORDERED: PRENATAL VIT/IRON/FA 1 EACH TABLET PO SCH (09:00)
[2020-11-26] MEDS ORDERED: OXYC1TAB14 PO (12:00)
[2020-11-26] MEDS ORDERED: OXYC5CAP2 PO (12:14)
[2020-11-26 12:20] VITALS: BP 128/84
== END 2020-11-26 14:45 | disposition home or self-care (01) | DRG 560 ==
LOC: LDOP 16:58 → LDIP 19:35 → 2NE 11-25 12:37 → 2NW 11-25 19:46
PROVIDERS: ADMIT Obstetrics & Gynecology; ATTEND Obstetrics & Gynecology
PROC: 10E0XZZ Delivery of Products of Conception, External Approach (ICD-10-PCS; principal; 2020-11-25)
PROC: 10H07YZ Insertion of Other Device into Products of Conception, Via Natural or Artificial Opening (ICD-10-PCS; 2020-11-25)
PROC: 3E0R3BZ Introduction of Anesthetic Agent into Spinal Canal, Percutaneous Approach (ICD-10-PCS; 2020-11-25)
PROC: 00HU33Z Insertion of Infusion Device into Spinal Canal, Percutaneous Approach (ICD-10-PCS; 2020-11-25)
DX: O99.52 Diseases of the respiratory system complicating childbirth (principal); Z37.0 Single live birth; J45.909 Unspecified asthma, uncomplicated; Z20.822 Contact with and (suspected) exposure to COVID-19; Z3A.38 38 weeks gestation of pregnancy; Z88.1 Allergy status to other antibiotic agents; Z91.040 Latex allergy status
CPT/HCPCS: 36415; 80307; 81001; 85025; 86592; 86850; 86900; 87086; 87635; 89060; G0378; J2405; J2590; J7120; Q0114